=== PATIENT | male | born 1970 | race Hispanic/Latino ===

== ENCOUNTER 2023-11-13 06:48 | Inpatient (IN) | payer BC ==
--- OUTSIDE RECORDS SUMMARY | 2023-11-13 06:51 | XMS REPORT | Continuity of Care Document ---
Author Name Unknown Address [address] [facility]. [address] [facility] Address [address] [facility]. 1 495 [place] [address] Care Team Providers Care Talent Recruiter Name Role Phone Mahin Elmore Attending Clinician Andrei Davila Attending Clinician Sabina sánchez Physician, No Primary or Family Admitting Clinic niesha Unavailable Payers Payer Name Policy Type Policy Number Effective Date Expirati on Date Source Allergies, Adverse Reactions, Alerts Allergy Name Allergy Type Status Severity Reaction(s) Onset Date Inactive Date Treating Clinician Comments Source No Known Allergie s DA Active U 2022-03 0 00:00: 00 [facility] Encounters Start Date/Time End Date/Time Encounter Type Admission Type Attending Clinicians Care Facility Care Department Encounter ID Source 2023-06-22 15:38:45 2023-06-22 15:38:45 Outpatient SFA SFA [id number] Kory Hatch 2023-02-27 12:36:00 2023-02-27 12:36:00 Outpatient Mahin Elmore HCACL HCACL [id number] 34 [facility] 2023-02-21 05:17:00 2023-02-21 05:17:00 [facility] [id number] 51 [facility] 2023-02-20 10:05:00 2023-02-20 10:05:00 Outpatient Mahin Horvath [facility] [id number] 70 [facility] 2023-01-17 00:57:00 2023-01-17 06:11:00 Emergency EM [facility] [id number] 26 [facility] 2022-09-27 16:44:11 2022-09-27 16:44:11 Outpatient [place] [id number] Kory Hatch 2022-09-01 16:42:54 2022-09-01 16:42:54 Outpatient [facility] [id number] Kory Hatch 2022-08-24 10:49:32 2022-08-24 10:49:32 Outpatient [facility] [id number] Kory Hatch 2022-01-12 16:41:26 2022-01-12 16:41:26 Outpatient [facility] Kory Hatch 2022-01-03 10:00:49 2022-01-03 10:00:49 Outpatient [facility] Kory Hatch 2021-12-21 11:13:55 2021-12-21 11:13:55 Outpatient [place] [id number] Kory Finn Holden Results Test Description Test Time Test Comments Results Result Co mments Source CYTOLOGY NON [id number] 11:31:00* Test Item Value Reference Range Interpretation Comments 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) RUN DATE: 02/22/23 [place] - LAB PAGE 1 RUN TIME: 1131 Specimen Inquiry RUN USER: INTERFACE PATIENT: SARAH SARAVIA LOC: [place] U #: [id number] AGE/SX: 52/M ROOM: RE02/21/23REG DR: Mahin Elmore MD : 66 BED: DIS: STATUS: [facility] TLOC: SPEC #: [id number] RECD: 02/22/23 STATUS: CHARLINE HARRY #: [id number] WOODY: 02/21/23- SUBM DR: Mahin Elmore MD ENTERED: 02/22/23 SP TYPE: CYTO NGYN OTHR DR: No Primary or Family PhysicianORDERED: 74114/4, FNA INTERP RPT/4, ANATOMIC SPEC COPIES TO: No Primary or Family Physician Mahin Elmore MD [address] [place] [id number] PROCEDURES: 48153 (02/22/23) FNA INTERP RPT (02/22/23) TISSUES: A. LYMPH NODE, FNA CYTOLOGY (SMEAR,CELL BLOCK) - LEFT UPPER LOBE FNA- REC'D IN FORMALIN B. LYMPH NODE, FNA CYTOLOGY (SMEAR,CELL BLOCK) - RIGHT UPPER LOBE FNA- REC'D IN FORMALIN C. LYMPH NODE, FNA CYTOLOGY (SMEAR,CELL BLOCK) - STATION 10R FNA- REC'D IN FORMALIN D. LYMPH NODE, FNA CYTOLOGY (SMEAR,CELL BLOCK) - ST 7 FNA- REC'D IN FORMALIN CLINICAL HISTORY LUNG MASS FINAL DIAGNOSIS #1. Lung, left upper lobe, fine-needle aspiration and cell block: -No malignant cells identified. -Blood, inflammatory cells, and benign epithelial cells. #2. Lung, right upper lobe, fine-needle aspiration and cell block: -No malignant cells identified. -Blood, inflammatory cells, and benign epithelial cells. #3. Station 10R, fine-needle aspiration and cell block: -No malignant cells identified. -Blood and inflammatory cells. #4. Station 7, fine-needle aspiration and cell block: -No malignant cells identified. -Blood, cartilage, inflammatory cells, and benign epithelial cells. Comment: Correlation with concurrent flow cytometry studies is recommended. CONTINUED ON NEXT PAGE RUN DATE: 02/22/23 [place] [facility] PAGE 2 RUN TIME: 1131 Specimen Inquiry RUN USER: INTERFACE SPEC #: [id number] PATIENT: SARAH SARAVIA #[id number] (Continued) - GROSS DESCRIPTION Specimen #1 is received as FNA left upper lobe. 2 cytospin slides and 1 cell block areprepared. Specimen #2 is received as FNA right upper lobe. 2 cytospin slides and 1 cell block areprepared. Specimen #3 is received as FNA station 10R. 2 cytospin slides and 1 cell block areprepared. Specimen #4 is received as FNA station 7. 2 cytospin slides and 1 cell block are prepared. Fresh tissue from location 4R was sent for flow cytometry studies. Technical component performed at [facility],[address] [place] [address], [place] [address] Unless gross only, the diagnosis is based upon microscopic examination.Immunohistochemistry: This test was developed and its performance characteristicsdetermined by this laboratory. It has not been approved nor does it need approvalby the [place] FDA. Appropriate positive and negative controls are reviewed and judgedto be acceptable for performedimmunohistochemistry and/or special stains. This laboratoryis certified under the Clinical Laboratory Improvement Amendments (CLIA-88) as qualified toperform high complexity clinical laboratory testing. MICROSCOPIC DESCRIPTION A microscopic examination was performed. CLINICAL INFORMATION PULMONARY NODULE Signed SIGNATURE ON FILE Vadim Ellis 02/22/23 1131 END OF REPORT - XR FLUOROSCOPY 0-60 [id number] 08:57:00 [facility] 1970 Sex: M FAX: Mahin Velez MD [phone] [place]: St: REG Name: SARAH SARAVIA [facility] : 1970 Age/S: 52/M [address] [place] [address] Unit #: [id number] Loc: [place] [address] Phys: Mahin Elmore MD Acct: [id number] Dis Date: Status: REG [facility] PHONE #: [phone] Exam Date: 02/21/2023 0835 FAX #: [phone] Reason: BRONCH EXAMS: CPT CODE: [id number] XR FLUOROSCOPY 0-60 MIN 69203 Location: [facility] Study: Intraoperative fluoroscopic images. FINDINGS/ IMPRESSION: Intraoperative fluoroscopic images of bronchoscopy was performed. Please note that I was not present for this procedure. Please refer tothe operative notes for further details. Fluoroscopy time: None available. Total cumulative dose: No t available. 2 fluoroscopic spot images were obtained. Electronically Signed by Daja Lewis 02/21/2023 at 0857 Reported and signed by: Skip Chapman M.D. CC: Mahin Elmore MD Technologist: RT Vesta(R) Trnscrd Date/Time/By: 02/21/2023 (0857) : By: [email or web address] Orig Print D/T: S: 02/21/2023 (0901) PAGE 1 Signed Report- CT CHEST W/O [id number] 16:09:00 [facility] 1970 Sex: M Name: SARAH SARAVIA [facility] : 1970 Age/S: 52 / M [address] [place] [address] Unit #: [id number] Loc: [place] [address] Phys: Mahin Elmore MD Acct: [id number] Dis Date: Status: REG SDCPHONE #: [phone] Exam Date: 02/20/2023 1025 FAX #: [phone] Reason: R91.1, SOLITARY PULMONARY NODULE. EXAMS: CPT CODE: [id number] CT CHEST W/O CONTRAST 86919 EXAM: - CT CHEST W/O CONTRAST LOCATION: U19 TECHNIQUE: Serial axial CT images were obtained from the supraclavicular region to the adrenal glands without the administration of intravenous contrast. Phase(s): Non-contrast Reformats: Standard coronal and sagittal reformats. This exam was performed according to our departmental dose-o ptimization program, which includes automated exposure control, adjustment of the mA and/or kV according to patient size and/or use of iterative reconstruction technique. Unless otherwise specified, incidental findings do not require dedicated imaging follow-up. COMPARISON: CT chest 01/17/2023 HISTORY: R91.1, SOLITARY PULMONARY NODULE. FINDINGS: THYROID: Normal. LYMPHADENOPATHY: There is no supraclavicular or axillary lymphadenopathy. Enlarged mediastinal and hilar lymph nodes are present bilaterally, measuring up to 1.8 cm right lower paratracheal AIRWAYS: Scattered areas of mucus plugging noted within the segmental and subsegmental airways bilaterally, most pronounced in the right middlelobe. LUNGS/PLEURA: Multiple scattered pulmonary nodules are again noted with the largest measuring up to 1.8 cm at the right lung apex. Nodules demonstrate both peribronchovascular and fissure-based distribution. These appear grossly unchanged from recent prior. A few nodules appear to demonstrate central calcifications. No pleural effusion, pleural based masses, or calcifications. MEDIASTINUM:The heart and pericardium are unremarkable. The thoracic aorta is nonaneurysmal. No aortic atherosclerosis. No coronary artery calcifications noted. The pulmonary trunk is normal in size. The esophagus is grossly unremarkable. PAGE 1 Signed Report (CONTINUED) Name: SARAH SARAVIA [facility] : 1970 Age/S: 52 / M [address] [place] [address] Unit #: [id number] Loc: [place] [address] Phys: Mahin Elmore MD Acct: [id number] Dis Date: Status: REG [facility] PHONE #: [phone] Exam Date: 02/20/2023 1025 FAX #: [phone] Reason: R91.1, SOLITARY PULMONARY NODULE. EXAMS: CPT CODE: [id number] CT CHEST W/O CONTRAST 78233 (Continued) VISUALIZED ABDOMEN: The visualized upper abdomen is unremarkable. SOFT TISSUES: Unremarkable. BONES: No acute osseous findings. IMPRESSION: Unchanged enlarged mediastinal and hilar lymph nodes in addition to multiple bilateral pulmonary nodules measuring up to 1.8 cm in the right lung apex. A few of the nodules appear to demonstrate small central calcifications. Metastatic disease is again included in the differential, but bulky bilateral mediastinal and hilar lymphadenopathy in addition to pulmonary nodules with central calcifications can be seen with early/acute granulomatous response to fungal infection or resolving underlying sarcoidosis. Recommend correlation with lab values and possible follow-up bronchoscopy and/or suzanne biopsy if clinically warranted. at 1609 Reported and signed by: Caleb Harrington D.O. CC: Mahin Elmore MD Technologist:Sumaya Devine, RT(R)(CT) CTDI: DLP: Trnscb Date/Time: 02/20/2023 (1609) [email or web address] Orig Print D/T: S: 02/20/2023 (9817) PAGE 2 Signed ReportBASIC METABOLIC [id number] 10:07:00* Test Item Value Reference Range Interpretation Comme nts SODIUM (test code = NA) 141 mEq/L 134-147 N POTASSIUM (test code = K) 4.4 mEq/L 3.4-5.0 N CHLORIDE (test code = CL) 109 mEq/L 100-108 H CARBON DIOXIDE (test code = CO2) 28 mEq/l 21-33 N ANION GAP (test code = GAP) 9 0-20 N GLUCOSE (test code = GLU) 90 mg/dL 77-141 N NOTE: NEW NORMAL RANGE BLOOD UREA NITROGEN (test code = BUN) 12 mg/dL 7-25 N NOTE: NEW NORM AL RANGE GLOMERULAR FILTRATION RATE (test code = GFR) 79.8 90-95 L The Glomerular Filtration Rate is a calculated parameterbased on serum Creatinine, patient age and sex. GFR valuesless than 60 mL/min/1.73 square meters are indicative ofChronic Kidney Disease. Values less than 15 mL/min/1.73square meters indicate Kidney failure. The calculation forGFR is based on the CKD-EPI (2020) calculation. This formulais race indifferent and is the recommended formula for GFRby the National Kidney Foundation for Adults.The GFR will not calculate if the sex is unknown or if thepatient's age is <18 years. CREATININE (test code = CREAT) 1.1 mg/dL 0.6-1.3 N CALCIUM (test code = CA) 8.7 mg/dL 8.0-10.5 N CBC W/AUTO [id number] 09:49:00* Test Item Value Reference Range Interpretation Comme nts WHITE BLOOD CELL (test code = WBC) 6.2 x10 3/uL 4.5-11.0 N RED BLOOD CELL (test code = RBC) 5.74 x10 6/uL 4.00-5.60 H HEMOGLOBIN (test code = HGB) 16.2 g/dL 12.5-16.9 N HEMATOCRIT (test code = HCT) 46.3 % 37.5-50.7 N MEAN CELL VOLUME (test code = MCV) 80.7 fL 81.0-99.0 L MEAN CELL HGB (test code = MCH) 28.2 pg 27.0-33.0 N MEAN CELL HGB CONCETRATION (test code = MCHC) 35.0 g/dL 33.0-37.0 N RED CELL DISTRIBUTION WIDTH CV (test code = RDW) 13.4 % 11.5-14.5 N RED CELL DISTRIBUTION WIDTH SD (test code = RDW-SD) 38.7 fL 37.0-54.0 N PLATELET COUNT (test code = PLT) 221 x10 3/uL 150-400 N MEAN PLATELET VOLUME (test c ode = MPV) 10.8 fL 7.0-9.0 H NEUTROPHIL % (test code = NT%) 59.1 % 56.0-77.0 N IMMATURE GRANULOCYTE % (test code = IG%) 0.6 % 0.0-2.0 N LYMPHOCYTE % (test code = LY%) 13.6 % 14.0-32.0 L MONOCYTE % (test code = MO%) 10.4 % 4.8-9.0 H EOSINOPHIL % (test code = EO%) 15.2 % 0.3-3.7 H BASOPHIL % (test code = BA%) 1.1 % 0.0-2.0 N NUCLEATED RBC % (test code = NRBC%) 0.0 % 0-0 N NEUTROPHIL # (test code = NT#) 3.68 x10 3/uL 2.0-7.6 N IMMATURE GRANULOCYTE # (test code = IG#) 0.04 x10 3/uL 0.00-0.03 H LYMPHOCYTE # (test code = LY#) 0.85 x10 3/uL 1.0-3.8 L MONOCYTE # (test code = MO#) 0.65 x10 3/uL 0.1-0.8 N EOSINOPHIL # (test code = EO#) 0.95 x10 3/uL 0.0-0.2 H BASOPHIL # (test code = BA#) 0.07 x10 3/uL 0.0-0.2 N NUCLEATED RBC # (test code = NRBC#) 0.00 x10 3/uL 0.0-0.1 N - CT CHEST W/[id number] 05:17:00 [facility] 1970 Sex: M Name: SARAH SARAVIA [facility] [place] : 1970 Age/S: 52 / M [address] [place] [address] Blvd Unit #: [id number] Loc: [place] [address] Phys: Daljit Ford VERIFICATION CLERK Acct: [id number] Dis Date: Status: REG ER PHONE #: [phone] Exam Date: 01/17/2023443 FAX #: [phone] Reason: DIFFICULTY SWALLOWING EXAMS: CPT CODE: [id number] CT CHEST W/CONTRAST 12248 EXAMINATION: - CT CHEST W/CONTRAST LOCATION: H101 CLINICAL HISTORY/INDICATION: DIFFICULTY SWALLOWING COMPARISON: None. TECHNIQUE: Axial imageswere obtained from the thoracic inlet to the adrenal glands with intravenous contrast in soft tissue and lung windows. Coronal and sagittal reformatted images were obtained from the axial data set. This examination was performed according to our departmental dose optimization program, which includes automated exposure control, adjustment of the mA and/or kV according to patient size, and/or use of iterative reconstruction technique. FINDINGS: STATEMENT: Unless otherwise specified, incidental findings do not require dedicated imaging follow-up. LINES/TUBES/DEVICE: None. LUNGS AND AIRWAYS: There are multiple solid nodules in the bilateral lungs involving all lobes. The largest nodule is located in the right upper lobe at the lung apex and measures 2 cm (image 9, series 3). The largest nodule in the left lung is subpleural in location, located in the left upper lobe and measures 1.4 cm (madhav ge 31, series 3). PLEURA: No pneumothorax or pleural effusion. THYROID GLAND: Normal. HEART AND MEDIASTINUM: Heart is normal in size without pericardial effusion. Conventional branching pattern of the aorta without aneurysm or dissection. Origins of great vessels are patent.. There is a moderate-sized hiatal hernia. There is wall thickening of the distal within the hiatal hernia which raises possibility of neoplasm.. ADENOPATHY: There are enlarged lymph nodes in the prevascular space, subcarinal space, AP window and bilateral hilum. The largest and most discrete mediastinal lymph node is located in the subcarinal region and measures 1.6 x 2.1 cm the largest right hilar lymph node measures 1.8 x 1.5 cm enlarged left hilar lymph node measures 1.8 x 1.6 cm. PAGE 1 Signed Report (CONTINUED) Name: SARAH SARAVIA [facility] : 1970 Age/S: 52 / M [address] [place] [address] Unit #: [id number] Loc: [place] [address] Phys: Daljit Ford NP Acct: [id number] Dis Date: Status: REG ER PHONE #: [phone] Exam Date: 01/17/2023443 FAX #: [phone] Reason: DIFFICULTY SWALLOWING EXAMS: CPT CODE: [id number] CT CHEST W/CONTRAST 74773 (Continued) EXTERNAL SOFT TISSUE: No abnormalities. UPPER ABDOMEN: The liver, gallbladder, pancreas, spleen and adrenal glands are unremarkable. BONES: Regional osseous structures are intact. There is moderate thoracic spine dextroscoliosis. There is no lytic or sclerotic bony lesions. IMPRESSION: 1. Multiple solid nodules in bilateral lungs. Findings may reflect metastatic disease or infectious process. The largest nodule is located in the right lung apex and measures up to 2 cm. Consider further evaluation with biopsy. If biopsy is notdesired, CT follow-up in 3 months or PET scan is recommended to further assess. 2. Moderate size hiatal hernia. Wall thickening within the hiatal hernia raises possibility of neoplasm. Further evaluation with endoscopy is recommended. 3. Mediastinal and hilar adenopathy may reflect suzanne metastases. at 0517 Reported and signed by: Billy García M.D. CC: Daljit Ford VERIFICATION CLERK; Andrei Ayers MD Technologist:Ruben Hilario, RT(R)(CT) CTDI: DLP: Trnscb Date/Time: 01/17/2023 (0517) [email or web address] Orig Print D/T: S: 01/17/2023 (0521) PAGE 2Signed Report- CT NECK W/[id number] 03:13:00 [facility] 1970 Sex: M Name: SARAH SARAVIA [facility] : 1970 Age/S: 52 / M [address] [place] [address] Unit #: [id number] Loc: [place] [address] Phys: Daljit Ford VERIFICATION CLERK Acct: [id number] Dis Date: Status: [facility] PHONE #: [phone] Exam Date: 01/17/2023212 FAX #: [phone] Reason: foreign body sensation EXAMS: CPT CODE: [id number] CT NECK W/CONTRAST 97156 LOCATION: 8 HISTORY: Male, 52 years of agewith foreign body sensation in the throat EXAM: CT SCAN OF SOFT TISSUES OF THE NECK WITH IV CONTRAST. COMPARISON: None at this time TECHNIQUE: Helical axial images were obtained with nonionic IV contrast using the soft tissue neck protocol. Coronal and sagittal reformats were performed. One or more of the following dose reduction techniques were used: Automated exposure control; adjustment of the mA and/or kV according to the patient size; and/or use of iterative reconstruction technique. STATEMENTS: Exam quality is acceptable. FINDINGS: Specifically, no radiopaque foreign body is seen in the upper aerodigestive tract. The incompletely imaged mid esophagus is nondistended but contains fluid up to the level of the upper mediastinum. Numerous enlarged confluent and slightly necrotic lymph nodes are seen in the mediastinum and both radha. Multiple soft tissue densities seen nodules are seen in the right and left upper lobes, largest measuring up to 2.2 cm diameter in the right apex, and h ighly suggestive of metastatic neoplasm. No pharyngeal or laryngeal mucosal thickening or mucosal mass lesion. No significant hypertrophy of tonsils or adenoids. No peritonsillar abscess collection.No retropharyngeal edema or abscess. Tongue base is unremarkable. The epiglottis is within normal limits. Vocal cords are symmetric. No significant airway compromise. Carotid and jugular vessels are unremarkable. Salivary glands are unremarkable. Thyroid gland is unremarkable. Mucosal thickening seen in both maxillary sinuses. The visualized mastoid air cells and middle ear cavities are clear. Noosteolytic or osteoblastic skeletal lesions. Numerous severe dental caries incidentally noted. IMPRESSION: 1. Numerous soft tissue masses in both upper lung zones as well as numerous confluent and necrotic lymph nodes in the mediastinum and both radha suggesting metastatic neoplasm. Recommend formalCT chest to further evaluate. 2. Fluid is present in the esophagus raising the question of reflux or possibly distal esophageal obstruction. PAGE 1 Signed Report (CONTINUED) Name: SARAH SARAVIA [facility] : 1970 Age/S: 52 / M [address] [place] [address] Blvd Unit #: [id number] Loc: [place] [address] Phys: Daljit Ford NP Acct: [id number] Dis Date: Status: [facility] ER PHONE #: [phone] Exam Date: 01/17/2023212 FAX #: [phone] Reason: foreign body sensation EXAMS: CPT CODE: [id number] CT NECK W/CONTRAST 40724 (Continued) 3. No radiopaque foreign body in the upper aerodigestive tract. at 0313 Reported and signed by: Iris Gary M.D. CC: Daljit Ford VERIFICATION CLERK; Andrei Ayers MD Technologist:RT Christofer(R)(CT) CTDI: DLP: Trnscb Date/Time: 01/17/2023 (312) [email or web address] Orig Print D/T: S: 01/17/2023 (315) PAGE 2 Signed ReportCOMPREHENSIVE METABOLIC PANEL 2023-01-17 02:11:00* Test Item Value Reference Range Interpretation Comme nts SODIUM (test code = NA) 144 mEq/L 134-147 N POTASSIUM (test code = K) 4.0 mEq/L 3.4-5.0 N CHLORIDE (test code = CL) 111 mEq/L 100-108 H CARBON DIOXIDE (test code = CO2) 24 mEq/l 21-33 N ANION GAP (test code = GAP) 13 0-20 N GLUCOSE (test code = GLU) 92 mg/dL 77-141 N NOTE: NEW NORMAL RANGE BLOOD UREA NITROGEN (test code = BUN) 19 mg/dL 7-25 N NOTE: NEW NORM AL RANGE GLOMERULAR FILTRATION RATE (test code = GFR) 71.9 90-95 L The Glomerular Filtration Rate is a calculated parameterbased on serum Creatinine, patient age and sex. GFR valuesless than 60 mL/min/1.73 square meters are indicative ofChronic Kidney Disease. Values less than 15 mL/min/1.73square meters indicate Kidney failure. The calculation forGFR is based on the CKD-EPI (2020) calculation. This formulais race indifferent and is the recommended formula for GFRby the National Kidney Foundation for Adults.The GFR will not calculate if the sex is unknown or if thepatient's age is <18 years. CREATININE (test code = CREAT) 1.2 mg/dL 0.6-1.3 N TOTAL PROTEIN (test code = PROT) 7.8 g/dL 6.4-8.2 N ALBUMIN (test code = ALB) 4.50 g/dL 3.4-5.0 N CALCIUM (test code = CA) 9.1 mg/dL 8.0-10.5 N BILIRUBIN TOTAL (test code = BILT) 1.80 mg/dL 0.0-1.0 H SGOT/AST (test code = AST) 23 IUnit/L 8-34 N NOTE: NEW NORMAL RANGE SGPT/ALT (test code = ALT) 15 IUnit/L 10-49 N NOTE: NEW NORMAL RANGE ALKALINE PHOSPHATASE TOTAL (test code = ALKP) 96 IUnit/L 20-125 N CBC W/AUTO [id number] 02:06:00* Test Item Value Reference Range Interpretation Comme nts WHITE BLOOD CELL (test code = WBC) 7.7 x10 3/uL 4.5-11.0 N RED BLOOD CELL (test code = RBC) 5.85 x10 6/uL 4.00-5.60 H HEMOGLOBIN (test code = HGB) 16.7 g/dL 12.5-16.9 N HEMATOCRIT (test code = HCT) 46.6 % 37.5-50.7 N MEAN CELL VOLUME (test code = MCV) 79.7 fL 81.0-99.0 L MEAN CELL HGB (test code = MCH) 28.5 pg 27.0-33.0 N MEAN CELL HGB CONCETRATION (test code = MCHC) 35.8 g/dL 33.0-37.0 N RED CELL DISTRIBUTION WIDTH CV (test code = RDW) 13.8 % 11.5-14.5 N RED CELL DISTRIBUTION WIDTH SD (test code = RDW-SD) 39.4 fL 37.0-54.0 N PLATELET COUNT (test code = PLT) 275 x10 3/uL 150-400 N MEAN PLATELET VOLUME (test c ode = MPV) 11.1 fL 7.0-9.0 H NEUTROPHIL % (test code = NT%) 74.4 % 56.0-77.0 N IMMATURE GRANULOCYTE % (test code = IG%) 0.5 % 0.0-2.0 N LYMPHOCYTE % (test code = LY%) 10.7 % 14.0-32.0 L MONOCYTE % (test code = MO%) 9.1 % 4.8-9.0 H EOSINOPHIL % (test code = EO%) 4.3 % 0.3-3.7 H BASOPHIL % (test code = BA%) 1.0 % 0.0-2.0 N NUCLEATED RBC % (test code = NRBC%) 0.0 % 0-0 N NEUTROPHIL # (test code = NT#) 5.75 x10 3/uL 2.0-7.6 N IMMATURE GRANULOCYTE # (test code = IG#) 0.04 x10 3/uL 0.00-0.03 H LYMPHOCYTE # (test code = LY#) 0.83 x10 3/uL 1.0-3.8 L MONOCYTE # (test code = MO#) 0.70 x10 3/uL 0.1-0.8 N EOSINOPHIL # (test code = EO#) 0.33 x10 3/uL 0.0-0.2 H BASOPHIL # (test code = BA#) 0.08 x10 3/uL 0.0-0.2 N NUCLEATED RBC # (test code = NRBC#) 0.00 x10 3/uL 0.0-0.1 N Notes Date/Time Note Provider Source 2023-02-26 16:36:00 [id number] [address] PATIENT NAME: SARAH SARAVIA ADMIT DATE: 02/21/23 ACCOUNT NO: [id number] ROOM NO: AGE: 52 REPORT TYPE: HISTORY AND PHYSICAL SEX: M ADMITTING PHYSICIAN: ATTENDING PHYSICIAN:Mahin Elmore MD ADMISSION DATE: 02/21/2023 05:17:00 CHIEF COMPLAINT: Lung mass. HISTORY OF PRESENT ILLNESS: This is a 52-year-old male who had come to the emergency room because of a piece of chicken got stuck in his esophagus. In the emergency room, his chicken did pass, but on the CT scan of the chest they found multiple nodules with the largest in the right upper lobe apex and there was extensive right hilar and mediastinal adenopathy. He has already seen Dr. Elizalde and he was about to get a PET scan, but we do not have the records. MEDICATIONS: Theophylline 100 mg daily. ALLERGIES: NONE. PAST MEDICAL HISTORY: Asthma and he only uses ProAir therapy. PAST SURGICAL HISTORY: None. FAMILY HISTORY: He is adopted. SOCIAL HISTORY: He is a former smoker for only 3 years and he quit in 1999. 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 REVIEW OF SYSTEMS: In addition to the above, the patient has denied cough or chest pain. He has no fever and no weight loss. PHYSICAL EXAMINATION: VITAL SIGNS: Stable. Pulse oximetry 98% on room air. His BMI is 27. GENERAL APPEARANCE: He is well-built and he is alert and oriented. SKIN: Has no rash. HEENT: Shows normal mouth and throat. NECK: Has no masses, no lymph nodes. LUNGS: Clear. HEART: Regular. ABDOMEN: Soft, nontender. EXTREMITIES: Have no edema, no clubbing, no cyanosis. NEUROLOGIC: Shows no motor deficits and cranial nerves are intact. LABORATORY DATA AND X-RAYS: CT scan was described above. PATIENT NAME: SARAH SARAVIA His labs are normal. IMPRESSION: 1. Multiple nodules in all lobes with the largest one in the right upper lobe apex. 2. Enlarged mediastinal and right hilar nodes. PLAN: 1. Robotic bronchoscopy with linear EBUS with fluoroscopy. 2. PET scan is already planned, add this later. Dictated By: Mahin Elmore MD Date Dictated: 02/26/2023 16:36:49 Date Transcribed: 02/26/2023 21:52:54 [facility] Receipt ID: [id number] Authenticated by Mahin Elmore MD On 02/28/2023 10:06:29 PM at 1006 PATIENT NAME: SARAH SARAVIA [facility] 2023-02-21 18:10:00 [id number] [place] [address] PATIENT NAME: SARAH SARAVIA ADMIT DATE: 02/21/23 ACCOUNT NO: [id number] ROOM NO: AGE: 52 REPORT TYPE: OPERATIVE REPORT SEX: M ADMITTING PHYSICIAN: ATTENDING PHYSICIAN:Mahin Elmore MD OPERATION DATE: 02/21/2023 PREOPERATIVE DIAGNOSIS: POSTOPERATIVE DIAGNOSIS: PROCEDURE: 1. Robotic bronchoscopy with transbronchial needle biopsy. 2. Linear endobronchial ultrasound. 3. Radial endobronchial ultrasound. SURGEON: DEGREASING SOLUTION MIXER: INDICATION FOR THE PROCEDURES: Lung nodules and extensive mediastinal adenopathy. ANESTHESIA: General endotracheal tube. INDICATION FOR THE USE OF LINEAR ULTRASOUND BRONCHOSCOPY: The lymph nodes in question were not visible via any other means and the ultrasound was needed to guide the biopsy needle. This was done also as a possible staging for cancer. INDICATION FOR THE USE OF RADIAL ULTRASOUND: The lung nodule in question was not visible using fluoroscopy or endobronchial direct visualization. The radial ultrasound was needed to localize the nodule and direct the biopsy instruments. PROCEDURE IN DETAIL: I started with the regular bronchoscope and went through the endotracheal tube. There were no endobronchial lesions seen. I examined the airway down to the segmental bronchi on both sides and I suctioned small amount of excessive secretions. I then switched to the robotic bronchoscopy catheter that I inserted through the endotracheal tube and I proceeded with the usual registration. I had already loaded the CT scan, CT images in the PlanPoint software and I did the computer planning for the virtual airway path to be followed. I navigated initially to the left upper lobe nodule. I used the radial ultrasound and was not able to get any nodule shadow. I did three passes with 19-gauge needle biopsy guided by the navigation software and fluoroscopy. I then changed to the second target which is in the right upper lobe apex. Again, I navigated to the target and checked with radial ultrasound probe and I was not able to get a signal. I did four passes with 19-gauge needle biopsy guided by PATIENT NAME: SARAH SARAVIA the virtual images and fluoroscopy. I switched afterwards to linear EBUS scope and I went through the endotracheal tube. There was extensive adenopathy at stations 4R, 10R and 11R and station 7. I did biopsies at station 4R and 10R and station 7 and I used all the return from station 4R for microbiology and flow cytometry. The lymph nodes in general were quite hard and only small tissue material was breaking up and getting in the needle. There was continuous mild oozing of blood from a biopsy site in the right side airway and I changed to the regular bronchoscope and suctioned all the blood and waited until the oozing stopped. I checked with fluoroscopy and there was no pneumothorax at the end of the procedure. ESTIMATED BLOOD LOSS: 20 mL. Dictated By: Mahin Elmore MD Date Dictated: 02/21/2023 18:10:22 Date Transcribed: 02/22/2023 00:03:20 [facility] Receipt ID: [id number] Authenticated by Mahin Elmore MD On 02/26/2023 04:11:39 PM at 0411 PATIENT NAME: SARAH SARAVIA [facility] 2023-02-20 09:00:00 [phone] [address] PATIENT NAME: RANISARAH ADMIT DATE: ACCOUNT NO: [id number] ROOM NO: AGE: 52 REPORT TYPE: eELECTROCARDIOGRAM REPORT SEX: M ADMITTING PHYSICIAN: ATTENDING PHYSICIAN:Mahin Elmore MD Order: [id number] Test Reason : PREOP Test Date/Time Stamp: MonFeb 20 2023 09:00:03 Blood Pressure : / mmHG Vent. Rate : 057 BPM Atrial Rate : 057 BPM P-R Int : 136 ms QRS Dur : 090 ms QT Int : 382 ms P-R-T Axes : 052 -01 021 degrees QTc Int : 371 ms Sinus bradycardia Otherwise normal ECG Confirmed by MD BENNETT OMAR ([id number]) on 02/20/2023 11:50:51 AM Referred By: Mahin Elmore Confirmed by:HERBERT BENNETT MD at 1150 PATIENT NAME: SARAH SARAVIA [facility] 2023-01-17 01:34:00 [facility] ([facility] EMERGENCY PROVIDER REPORT REPORT#:[id number] REPORT STATUS: Signed DATE:01/17/23 TIME: 133 PATIENT: SARAH SARAVIA UNIT #: [id number] ROOM/BED: AGE: 52 SEX: M PCP PHYS: No Primary or Family Physician SERVICE AUTHOR: Daljit Ford VERIFICATION CLERK * ALL edits or amendments must be made on the electronic/computer document * Daljit Ford 01/17/23 0134: HPI-Sore Throat Free Text HPI Notes Free Text HPI Notes 52-year-old male in for evaluation of possible foreign body in throat. Patient reports he was seen at another hospital and given glucagon to help with symptoms , but no relief. Patient states this is happened to him in the past and had to have endoscopic to remove food bolus. Patient reports symptoms started around 4 PM today after eating chicken. Patient complaining of inability to swallow. General Confirmed Patient Yes Patient Type New patient Initial Greet Date/Time 01/17/23 0100 Presentation Chief Complaint Sore throat, Ingestion, foreign body, Unable to take fluids Hx Obtained From Patient Onset Occurred Today Symptom Duration Since onset Progression since Onset Unchanged Context of Onset No sick contacts Location Neck, R side Quality Aching Pain/Sev: Onset Mild Pain/Sev: Current Mild Associated Other Pt denies other symptoms Exacerbated by Nothing Relieved by Nothing Review of Systems ROS Statements All systems rev neg except as marked. Focused Review of Systems Ears/Nose/Throat Reports: Sore throat, Throat pain. Past Medical History - Adult Stated Complaint "SOMETHING LODGED IN MY THROAT" Allergies Coded Allergies: No Known Allergies (01/17/23) Review of Nursing Notes Rev avail, and agree Past Medical History: Reports: Asthma. Smoking status for patients 13 years old or older: Never Smoker Physical Exam Vital Signs Vital Signs First Documented: Result Date Time Pulse Ox 96 01/17 100 B/P 116/82 01/17 100 B/P Mean 93 01/17 100 O2 Delivery Room air 01/17 100 Temp 36.8 01/17 100 Pulse 77 01/17 100 Resp 16 01/17 100 Last Documented: Result Date Time Pulse Ox 97 01/17 557 B/P 115/77 01/17 557 B/P Mean 89 01/17 557 O2 Delivery Room air 01/17 557 Temp 36.6 01/17 557 Pulse 72 01/17 557 Resp 14 01/17 557 Review of Vital Signs Reviewed Basic Physical Exam Basic PE HEAD: Atraumatic/NC, EYES: PERRL, conj clear, RESP: No resp distress, CV: Reg rate rhythm, ABD: Soft/non-tender, EXT: No gross abnormality, SKIN: No rashes, warm/dry, NEURO: alert oriented, NEURO: gross movement NL, PSYCH: NL thought content Focused PE General/Const General/Const Awake, Alert, No acute distress, Cooperative Ears/Nose/Throat Ears/Nose/Throat Atraumatic, Airway patent, Pharynx NL, No trismus, Tympanic membs NL MS Neck Neck Atraumatic, Supple, No meningismus, Full range of motion, No adenopathy, No swelling, Non-tender Resp/Chest Respiratory/Chest Atraumatic, Breath sounds NL, Breath sounds = bilat, No respiratory distress, No wheezing, No retractions Cardiovascular Cardiovascular Heart rate NL, Regular rhythm, Heart sounds NL, Cap refill not delayed Skin Skin Atraumatic, Color NL, No rash, Warm, Dry, Intact Neurologic Neurologic Oriented X3, Speech NL Interpretation Diagnostics Lab Results Interpretation Results Laboratory Tests 01/17/23 0149: [Embedded Image Not Available] Laboratory Tests: 01/179 Chemistry Sodium (134 - 147 mEq/L) 144 Potassium (3.4 - 5.0 mEq/L) 4.0 Chloride (100 - 108 mEq/L) 111 H Carbon Dioxide (21 - 33 mEq/l) 24 Anion Gap (0 - 20) 13 BUN (7 - 25 mg/dL) 19 Creatinine (0.6 - 1.3 mg/dL) 1.2 Glomerular Filtr Rate (90 - 95) 71.9 L Glucose (77 - 141 mg/dL) 92 Calcium (8.0 - 10.5 mg/dL) 9.1 Total Bilirubin (0.0 - 1.0 mg/dL) 1.80 H AST (8 - 34 IUnit/L) 23 ALT (10 - 49 IUnit/L) 15 Total Alk Phosphatase (20 - 125 IUnit/L) 96 Total Protein (6.4 - 8.2 g/dL) 7.8 Albumin (3.4 - 5.0 g/dL) 4.50 Hematology WBC (4.5 - 11.0 x10 3/uL) 7.7 RBC (4.00 - 5.60 x10 6/uL) 5.85 H Hgb (12.5 - 16.9 g/dL) 16.7 Hct (37.5 - 50.7 %) 46.6 MCV (81.0 - 99.0 fL) 79.7 L MCH (27.0 - 33.0 pg) 28.5 MCHC (33.0 - 37.0 g/dL) 35.8 RDW (11.5 - 14.5 %) 13.8 Plt Count (150 - 400 x10 3/uL) 275 MPV (7.0 - 9.0 fL) 11.1 H Neut % (Auto) (56.0 - 77.0 %) 74.4 Lymph % (Auto) (14.0 - 32.0 %) 10.7 L Hickman % (Auto) (4.8 - 9.0 %) 9.1 H Eos % (Auto) (0.3 - 3.7 %) 4.3 H Baso % (Auto) (0.0 - 2.0 %) 1.0 Neut # (Auto) (2.0 - 7.6 x10 3/uL) 5.75 Lymph # (Auto) (1.0 - 3.8 x10 3/uL) 0.83 L Hickman # (Auto) (0.1 - 0.8 x10 3/uL) 0.70 Eos # (Auto) (0.0 - 0.2 x10 3/uL) 0.33 H Baso # (Auto) (0.0 - 0.2 x10 3/uL) 0.08 Abs Immat Gran (auto) (0.00 - 0.03 x10 3/uL) 0.04 H Immature Gran % (0.0 - 2.0 %) 0.5 Nucleated RBC % (0 - 0 %) 0.0 Nucleated RBCs # (Man) (0.0 - 0.1 x10 3/uL) 0.00 Recent Impressions: CAT SCAN - CT NECK W/CONTRAST 01/17 213 Report Impression - Status: SIGNED Entered: 01/17/2023 0316 IMPRESSION: 1. Numerous soft tissue masses in both upper lung zones as well as numerous confluent and necrotic lymph nodes in the mediastinum and both radha suggesting metastatic neoplasm. Recommend formal CT chest to further evaluate. 2. Fluid is present in the esophagus raising the question of reflux or possibly distal esophageal obstruction. 3. No radiopaque foreign body in the upper aerodigestive tract. Impression By: Rosario Gary M.D. CAT SCAN - CT CHEST W/CONTRAST 01/18 444 Report Impression - Status: SIGNED Entered: 01/17/2023 0521 IMPRESSION: 1. Multiple solid nodules in bilateral lungs. Findings may reflect metastatic disease or infectious process. The largest nodule is located in the right lung apex and measures up to 2 cm. Consider further evaluation with biopsy. If biopsy is not desired, CT follow-up in 3 months or PET scan is recommended to further assess. 2. Moderate size hiatal hernia. Wall thickening within the hiatal hernia raises possibility of neoplasm. Further evaluation with endoscopy is recommended. 3. Mediastinal and hilar adenopathy may reflect suzanne metastases. Impression By: Viraj García M.D. Lab Imaging Statement Laboratory radiographic studies reviewed and considered in the medical decision-making. Point of Care Testing Pulse Oximetry Pulse Ox % 96 On: Room air Interpretation Interpreted by me, Pulse oximetry normal Time 0100 Re-Evaluation MDM Free Text MDM Notes Free Text MDM Notes 52-year-old male in for possible foreign body in throat. CBC and CMP unimpressive. CT of soft tissue neck negative for any foreign body, but does reveal numerous soft tissue masses in both upper lung zones as well as numerous confluent and necrotic lymph nodes in the mediastinum and both radha suggesting metastatic neoplasm. CT of the chest reveals 2 cm lung nodule and adjacent wall thickening of hiatal hernia. CT findings discussed with patient. Plan is admit patient for further evaluation and consult with gastroenterology as well as heme otology oncology for biopsy. Patient refusing to stay and requesting to leave against medical. Patient case discussed with Dr. Ayers, ED attending. ED Course Medication(s) Ordered Medication(s) Ordered: Autonomic Drugs Sig/Farhat Start time Last Medication Dose Route Stop Time Status Admin Albuterol Sulfate 2.5 MG X1ED STA 01/17 0546 DC 01/17 NEB 01/17 0547 0605 Albuterol Sulfate 2.5 MG X1ED STA 01/17 0449 CAN NEB 01/17 0450 Diagnostic Agents Sig/Farhat Start time Last Medication Dose Route Stop Time Status Admin Iopamidol 75 ML .STK-MED ONE 01/17 446 DC 01/17 IV 01/17 447 0446 Differential Diagnosis Differential Diagnosis Aphthous ulcer, Parotitis, Pharyngitis, acute, Pharyngitis, viral, Strep throat, Tonsillitis, acute Patient Discharge Departure Vital Signs/Condition Vital Signs First Documented: Result Date Time Pulse Ox 96 01/17 100 B/P 116/82 01/17 100 B/P Mean 93 01/17 100 O2 Delivery Room air 01/17 100 Temp 36.8 01/17 100 Pulse 77 01/17 100 Resp 16 01/17 100 Last Documented: Result Date Time Pulse Ox 97 01/17 557 B/P 115/77 01/17 557 B/P Mean 89 01/17 557 O2 Delivery Room air 01/17 557 Temp 36.6 01/17 557 Pulse 72 01/17 557 Resp 14 01/17 557 All vital signs available at the time of this entry have been reviewed. Condition Stable Disposition Decision Other )( Time 05 )( Date 01/17/23 Against Medical Advice Yes Discharge/Care Plan Counseled Regarding Diagnosis, Lab results, Imaging studies, Prescriptions, Need for admission, Need for follow-up, Smoking cessation, Alcohol cessation Additional Instructions Patient follow-up suggested for pulmonology, oncology, and gastroenterology regarding symptoms and today's work-up. You have been discharged home with copies of the images as well as the radiology reports. Strict return precautions discussed for shortness of breath or inability to swallow. Andrei Ayers 01/18/23 0310: Patient Discharge Departure Clinical Impression Clinical Impression Primary Impression: Hiatal hernia Secondary Impressions: Left against medical advice, Lung mass Discharge/Care Plan Referrals Provider Referral: Fred Aldana MD Address: [address] [place] [address] Provider Referral: Cesar Richardson MD Address: [address] [place] [address] Provider Referral: Jono Yip MD Address: [address] [place] [address] [id number] [place] [id number] Provider Referral: Noam Valderrama MD Address: [address] [place] [address] Supervising Physician Note MidLv Saw Pt Alone I have reviewed the PA/VERIFICATION CLERK's note and plan of care. I was available for consultation as needed at all times during the patient's visit in the emergency department. Left AMA at 0224 at 0312 RPT #:[id number] END OF REPORT [facility]
[2023-11-13] MEDS ORDERED: ALBUTEROL 2.5 MG/3 ML NEB SOL ONE ×4 (06:53→10:01)
[2023-11-13] MEDS ORDERED: IPRATROPIUM BROM 0.5MG/2.5ML ONE ×2 (06:53→14:59)
[2023-11-13] MEDS ORDERED: METHYLPREDNISOLONE 125 MG INJ ONE ×2 (06:56→12:05)
[2023-11-13 07:12] LABS: Absolute Basophils 0.1 K/uL (0-0.5); Absolute Eosinophils 1.5 K/uL (0-0.5); Absolute Lymphocytes (CBC) 0.7 K/uL (0.7-4.9); Absolute Monocytes 0.5 K/uL (0.1-1.3); Absolute Neutrophil 4.6 K/uL (1.8-8.0); Basophils % 1.2 % (0-1.3); Eosinophils % 19.7 % (0-4.4); Hematocrit 47.1 % (39.6-49.0); Hemoglobin 15.9 g/dL (13.6-17.9); Lymphocytes % 9.5 % (15.3-44.8); MCH 28.3 pg (27.0-35.0); MCHC 33.8 g/dL (32.0-36.0); MCV 83.6 fL (80-100); MPV 9.2 fL (7.6-11.3); Monocytes % 7.3 % (3.3-12.3); Neutrophils % 62.3 % (41.7-73.7); Nucleated Red Blood Cells % 0.2 % (0-0); Platelets 234 thou/uL (152-406); RBC Red Blood Cell Count 5.64 M/uL (4.33-5.43)
[2023-11-13] MEDS ORDERED: Magnesium Sulfate 2gm IVPB 2 G/50 ML BAG IV ONE (07:28)
[2023-11-13 07:33] LABS: Albumin 4.3 g/dL (3.4-5.0); Albumin/Globulin Ratio 1.1 (1.1-1.8); Bilirubin Direct 0.2 mg/dL (0-0.2); Bilirubin Indirect, Calculated 0.8 mg/dL (0.2-0.8); Globulin 3.9 g/dL (2.3-3.5); Magnesium 2.2 mg/dL (1.6-2.4); Protein, Total 8.2 g/dL (6.4-8.2); Troponin High Sensitivity 5.8 pg/mL (<58.9)
[2023-11-13] MEDS ORDERED: CEFTRIAXONE 1000 MG/VIAL ONE (07:42)
[2023-11-13] MEDS ORDERED: AZITHROMYCIN 500 MG INJ IVPB ONE (07:42)
[2023-11-13] MEDS ORDERED: NA CHLORIDE 0.9% 250 ML ONE (07:43)
--- NOTE | 2023-11-13 08:24 | RAD REPORT ---
EXAM DESCRIPTION: Rosanne Single View11/13/2023 7:08 am CLINICAL HISTORY: DYSPNEA COMPARISON: No comparisons TECHNIQUE: Portable AP view of the chest. FINDINGS: Patchy airspace opacities in the upper to mid lung on the left, and in the mid to lower ri ght lung. Background chronic interstitial thickening and hyperlucency. No pneumothorax or effusion. The cardiomediastinal contours are unremarkable. IMPRESSION: Patchy bilateral airspace opacities as above, suggesting an infectious/inflammatory proc ess superimposed on chronic obstructive changes.
[2023-11-13] MEDS ORDERED: NA CHLORIDE 0.9% 1,000 ML ONE ×2 (08:25→12:05)
[2023-11-13 08:46] LABS: SARS-CoV-2 Antigen CONTROL BLUE LINE VIS/BG OK; SARS-CoV-2 Antigen Rapid Res Negative (Negative)
--- NOTE | 2023-11-13 09:24 | ER ---
Nurse's Notes [facility] Name: Gerry Templeton Age: 52 yrs Sex: Male : 1970 Arrival Date: 11/13/2023 Time: 06:48 Bed 4 Private MD: Diagnosis: Moderate persistent asthma with (acute) exacerbation Presentation: 11/12 07:00 Chief complaint: Patient states: SOB SINCE MONDAY, WORSE TODAY. HAVE ASTHMA. vc1 Coronavirus screen: Vaccine status: Patient reports being unvaccinated. Client denies travel out of the [place] in the last 14 days. At this time, the client does not indicate any symptoms associated with coronavirus-19. Ebola Screen: Patient negative for fever greater than or equal to 101.5 degrees Fahrenheit, and additional compatible Ebola Virus Disease symptoms Patient denies exposure to infectious person. Patient denies travel to an Ebola-affected area in the 21 days before illness onset. No symptoms or risks identified at this time. Initial Sepsis Screen: Does the patient meet any 2 criteria? No. Patient's initial sepsis screen is negative. Does the patient have a suspected source of infection? No. Patient's initial sepsis screen is negative. Risk Assessment: Do you want to hurt yourself or someone else? Patient reports no desire to harm self or others. Onset of symptoms was November 11, 2023. 07:00 Method Of Arrival: Ambulatory vc1 07:00 Acuity: ABHI 2 vc1 Triage Assessment: 07:02 General: Appears distressed, uncomfortable, slender, well groomed, well developed, well vc1 nourished, Behavior is cooperative, anxious. Pain: Denies pain. Neuro: Level of Consciousness is awake, alert, obeys commands, Oriented to person, place, time, situation, Appropriate for age. Cardiovascular: Rhythm is sinus tachycardia. Respiratory: Reports shortness of breath at rest Airway is patent Respiratory effort is even, labored, Respiratory pattern is symmetrical, tachypnea Breath sounds with wheezes bilaterally. Onset: The symptoms/episode began/occurred suddenly, the patient has moderate shortness of breath. Historical: - Allergies: 07:01 No Known Allergies; vc1 - Home Meds: 07:01 Albuterol Inhl [Active]; vc1 - PMHx: 07:01 Asthma; vc1 - PSHx: 07:01 None; vc1 - Immunization history:: Client reports having NOT received the Covid vaccine. - Infectious Disease History:: Denies. - Social history:: Smoking status: Patient denies any tobacco usage or history of. Screenin:40 [facility] ED Fall Risk Assessment (Adult) History of falling in the last 3 months, dd2 including since admission No falls in past 3 months (0 pts) Confusion or Disorientation No (0 pts) Intoxicated or Sedated No (0 pts) Impaired Gait No (0 pts) Mobility Assist Device Used No (0 pt) Altered Elimination Score/Fall Risk Level 0 - 2 = Low Risk Oriented to surroundings, Maintained a safe environment, Hourly rounding (assess needs \T\ fall precautionary measures) done. Abuse screen: Denies threats or abuse. Nutritional screening: No deficits noted. Tuberculosis screening: No symptoms or risk factors identified. Assessment: 07:40 General: Appears uncomfortable, ill, Behavior is anxious. Pain: Denies pain. Neuro: No dd2 deficits noted. Cardiovascular: Reports shortness of breath, Patient's skin is warm and dry. Pulses are all present. Rhythm is regular. Respiratory: Reports shortness of breath cough that is non-productive, Respiratory effort is with retractions, Breath sounds with rhonchi bilaterally. Breath sounds with wheezes bilaterally. GI: No deficits noted. : No deficits noted. EENT: No deficits noted. Derm: No deficits noted. Musculoskeletal: No deficits noted. 08:20 Reassessment: Patient appears in no apparent distress at this time. Patient and/or iw family updated on plan of care and expected duration. Pain level reassessed. Patient is alert, oriented x 3, equal unlabored respirations, skin warm/dry/pink. 11:44 Reassessment: Pt refusing BIPAP at this time. PRESETTER OPERATOR at bedside. dd2 Vital Signs: 07:00 BP 130 / 96; Pulse 104; Resp 28; Pulse Ox 94% on R/A; Weight 79.38 kg; Height 5 ft. 9 vc1 in. ; 07:45 BP 133 / 88; Pulse 107; Resp 24; Pulse Ox 97% ; dd2 08:28 BP 129 / 76; Pulse 89; Resp 18; Pulse Ox 99% on 2 lpm NC; iw 10:42 BP 139 / 95; Pulse 87; Resp 16; Pulse Ox 100% ; dd2 11:47 BP 146 / 86; Pulse 96; Resp 19; Pulse Ox 95% ; dd2 07:00 Body Mass Index 25.84 (79.38 kg, 175.26 cm) vc1 ED Course: 06:51 Patient arrived in ED. vc1 07:01 Triage completed. vc1 07:01 Initial lab(s) drawn, by me, sent to lab. Inserted saline lock: 20 gauge in right ty antecubital area, using aseptic technique. Blood collected. Flushed with 10 mL NS. 07:02 Arm band placed on left wrist. vc1 07:04 Basic Metabolic Panel Sent. ty 07:04 CBC with Diff Sent. ty 07:04 LFT's Sent. ty 07:04 Magnesium Sent. ty 07:04 NT PRO-BNP Sent. ty 07:04 Troponin HS Sent. ty 07:05 Radames Angeles MD is Attending Physician. ec2 07:10 XRAY Chest (1 view) In Process Unspecified. EDMS 07:40 Patient has correct armband on for positive identification. Bed in low position. Call dd2 light in reach. Side rails up X 1. Provided Education on: Call light, procedures, medications. Client placed on continuous cardiac and pulse oximetry monitoring. NIBP monitoring applied. quality assurance monitor on. Door closed. Warm blanket given. 07:50 Blood Culture Adult (2) Sent. ko1 07:50 Lactate w/ 2H reflex if indic. Sent. ko1 07:57 First set of blood cultures drawn by me, Second set of blood cultures drawn by me, EKG dd2 done, by ED staff, reviewed by Radames Angeles MD. 08:04 NEGRA SOUZA, RN is Primary Nurse. dd2 08:04 No provider procedures requiring assistance completed. Inserted saline lock: 20 gauge dd2 in left antecubital area, using aseptic technique. Oxygen administration via nasal cannula \T\ 2L/min. 08:20 COVID swab sent to lab. Flu and/or RSV swab sent to lab. iw 09:24 Mirlande Martin MD is Hospitalizing Provider. ec2 13:09 1309 CM met with patient at bedside in the ED exam room. Demographic sheet confirmed ane and change sent to appropriate personnel. Mr. Templeton states he lives with his on a 2nd floor apartment. Patient reports prior to admission, he performs ADLs independently. Patient reports he has an MPOA in place. DME in the home includes a CPAP. No HH, no home oxygen other medical services at this time. ' preferred plan is to return home upon discharge. Patient reports he can transport himself home. CM team will continue to follow and coordinate care. 16:17 Patient admitted, IV remains in place. ko1 Administered Medications: 07:04 Drug: DuoNeb Nebulize (3:1) (2.5 mg - 0.5 mg) 3 ml Nebulizer once Route: Nebulizer; vc1 07:34 Follow up: Response: No adverse reaction dd2 07:06 Drug: MethylPrednisoLONE IVP 125 mg IVP once Route: IVP; Site: right antecubital; ko1 07:21 Follow up: Response: No adverse reaction dd2 07:54 Drug: Magnesium Sulfate IVPB 2 grams IVPB once over 30 mins Route: IVPB; Infused Over: ko1 30 mins; Site: right antecubital; 08:09 Follow up: Response: No adverse reaction dd2 08:24 Follow up: Response: No adverse reaction; IV Status: Completed infusion; IV Intake: dd2 100ml 07:55 Drug: Rocephin IV 1 grams IV at calculated rate once; Given slow IV push per pharmacy ko1 instructions Route: IV; Rate: calculated rate; Site: right antecubital; 08:05 Follow up: Response: No adverse reaction; IV Status: Completed infusion dd2 08:10 Follow up: Response: No adverse reaction dd2 07:55 Drug: AZITHromycin IVPB 500 mg IVPB once over 1 hrs; (mix in 250 mL NS) Route: IVPB; ko1 Infused Over: 1 hrs; Site: right antecubital; 08:10 Follow up: Response: No adverse reaction dd2 08:58 Follow up: Response: No adverse reaction; IV Status: Completed infusion; IV Intake: dd2 250ml 08:36 Drug: NS 0.9% IV 1000 ml IV at 1 bolus Per protocol; 1000 mL bolus Route: IV; Rate: 1 dd2 bolus; Site: left antecubital; 09:42 Follow up: Response: No adverse reaction; IV Status: Completed infusion; IV Intake: dd2 1000ml 08:37 Drug: Albuterol Inhalation 2.5 mg Inhalation every 20 minutes x3 Route: Inhalation; dd2 10:01 Drug: Albuterol Inhalation 2.5 mg Inhalation every 20 minutes x3 Route: Inhalation; dd2 10:31 Follow up: Response: No adverse reaction dd2 10:01 Drug: Albuterol Inhalation 2.5 mg Inhalation every 20 minutes x3 Route: Inhalation; dd2 Medication: 07:40 VIS not applicable for this client. dd2 Intake: 08:24 IV: 100ml; Total: 100ml. dd2 08:58 IV: 250ml; Total: 350ml. dd2 09:42 IV: 1000ml; Total: 1350ml. dd2 Outcome: 09:24 Decision to Hospitalize by Provider. ec2 16:17 Admitted to ER Hold. Please see [facility] for further documentation. ko1 16:17 Condition: stable 16:17 Instructed on the need for admit, 17:07 Patient left the ED. dd2 Signatures: Dispatcher [employer] Mirlande Pineda RN RN iw Calcote, Vanessa, RN RN vc1 Annette Guerrero RN RN ko1 Radames Angeles MD MD ec2 Taran Gonzalez Andie, RN RN ane DAVIS, DIANA, RN RN dd2
--- NOTE | 2023-11-13 09:25 | EDPHYS ---
Physician Documentation [facility] Name: Gerry Templeton Age: 52 yrs Sex: Male : 1970 Arrival Date: 11/13/2023 Time: 06:48 Bed 4 Private MD: ED Physician Radames Angeles HPI: 11/12 07:10 This 52 yrs old Male presents to ER via Ambulatory with complaints of Breathing ec2 Difficulty. 07:10 Patient arrives today for evaluation of URI signs and symptoms. Patient reports ec2 symptoms ongoing for 2 days, reports shortness of breath, cough, no fevers or chills, no nausea or vomiting. Has been using inhalers at home with minimal improvement in symptoms.. Historical: - Allergies: 07:01 No Known Allergies; vc1 - Home Meds: 07:01 Albuterol Inhl [Active]; vc1 - PMHx: 07:01 Asthma; vc1 - PSHx: 07:01 None; vc1 - Immunization history:: Client reports having NOT received the Covid vaccine. - Infectious Disease History:: Denies. - Social history:: Smoking status: Patient denies any tobacco usage or history of. ROS: 07:11 Constitutional: as per hpi ec2 Exam: 07:11 Constitutional: GEN: NAD Head: atraumatic Eyes: EOMI Ears: External ears are ec2 normal. CV: Tachycardia LUNGS: Tachypnea, scattered wheezes throughout all lung leon ABD: non-distended SKIN: no evidence of rashes MSK: no evidence of trauma Vital Signs: 07:00 BP 130 / 96; Pulse 104; Resp 28; Pulse Ox 94% on R/A; Weight 79.38 kg; Height 5 ft. 9 vc1 in. ; 07:45 BP 133 / 88; Pulse 107; Resp 24; Pulse Ox 97% ; dd2 08:28 BP 129 / 76; Pulse 89; Resp 18; Pulse Ox 99% on 2 lpm NC; iw 10:42 BP 139 / 95; Pulse 87; Resp 16; Pulse Ox 100% ; dd2 11:47 BP 146 / 86; Pulse 96; Resp 19; Pulse Ox 95% ; dd2 07:00 Body Mass Index 25.84 (79.38 kg, 175.26 cm) vc1 MDM: 07:07 Patient medically screened. ec2 07:11 Data reviewed: vital signs. ED course: Patient arrives today for shortness of breath ec2 and cough and cold symptoms. Examination remarkable for tachypneic and tachycardic individual. Will obtain a septic workup, will empirically treat for pulmonary coverage. Differential includes asthma exacerbation, viral infection, pneumonia.. 08:04 ED course: EKG read by me, shows normal sinus rhythm, rate 93, no acute ST segment ec2 elevations, normal nonconcerning. . 08:10 ED course: CBC and metabolic profile are reassuring, LFTs nonactionable, troponin and ec2 BNP within normal ranges, lactate within normal ranges. . 08:12 ED course: On reassessment patient with marked improvement in his respiratory status ec2 however still remains tachypneic, will give the patient continuous albuterol as well.. 09:23 ED course: After continuous albuterol, patient still remains short of breath, will ec2 place patient on BiPAP and admit. Discussed case with hospitalist, pending admission. . 09:33 ED course: Venous blood gas shows pH of 7.31 and pCO2 retention of 49, this is prior to ec2 bipap. 11/12 06:52 Order name: Basic Metabolic Panel; Complete Time: 07:55 rt 11/12 06:52 Order name: CBC with Diff rt 11/12 06:52 Order name: LFT's; Complete Time: 07:55 rt 11/12 06:52 Order name: Magnesium; Complete Time: 07:55 rt 11/12 06:52 Order name: NT PRO-BNP; Complete Time: 07:55 rt 11/12 06:52 Order name: Troponin HS; Complete Time: 07:55 rt 11/12 07:07 Order name: Lactate w/ 2H reflex if indic.; Complete Time: 07:55 ec2 11/12 07:07 Order name: Blood Culture Adult (2) ec2 11/12 07:16 Order name: CBC Smear Scan EDMS 11/12 08:13 Order name: Influenza Screen (a \T\ B); Complete Time: 09:13 ec2 11/12 08:13 Order name: SARS RAPID; Complete Time: 09:13 ec2 11/12 09:18 Order name: ABG: VBG; Complete Time: 09:54 ec2 11/12 11:05 Order name: Basic Metabolic Panel EDMS 11/12 11:05 Order name: Basic Metabolic Panel EDCO 11/12 11:05 Order name: CBC with Automated Diff EDMS 11/12 11:05 Order name: CBC with Automated Diff EDMS 11/12 11:05 Order name: Lipid Profile EDMS 11/12 11:05 Order name: Lipid Profile EDCO 11/12 11:05 Order name: Troponin High Sensitivity EDMS 11/12 06:52 Order name: XRAY Chest (1 view); Complete Time: 08:27 rt 11/12 06:52 Order name: EKG; Complete Time: 06:53 rt 11/12 11:05 Order name: CONS Physician Consult EDMS 11/12 11:05 Order name: Respiratory Therapy Consult EDMS 11/12 06:52 Order name: Cardiac monitoring; Complete Time: 07:05 rt 11/12 06:52 Order name: EKG - Nurse/Tech; Complete Time: 07:50 rt 11/12 06:52 Order name: IV Saline Lock; Complete Time: 07:04 rt 11/12 06:52 Order name: Labs collected and sent; Complete Time: 07:04 rt 11/12 06:52 Order name: O2 Per Protocol; Complete Time: 07:04 rt 11/12 06:52 Order name: O2 Sat Monitoring; Complete Time: 07:04 rt 11/12 09:17 Order name: Misc. Order: VBG; Complete Time: 09:57 ec2 Administered Medications: 07:04 Drug: DuoNeb Nebulize (3:1) (2.5 mg - 0.5 mg) 3 ml Nebulizer once Route: Nebulizer; vc1 07:34 Follow up: Response: No adverse reaction dd2 07:06 Drug: MethylPrednisoLONE IVP 125 mg IVP once Route: IVP; Site: right antecubital; ko1 07:21 Follow up: Response: No adverse reaction dd2 07:54 Drug: Magnesium Sulfate IVPB 2 grams IVPB once over 30 mins Route: IVPB; Infused Over: ko1 30 mins; Site: right antecubital; 08:09 Follow up: Response: No adverse reaction dd2 08:24 Follow up: Response: No adverse reaction; IV Status: Completed infusion; IV Intake: dd2 100ml 07:55 Drug: Rocephin IV 1 grams IV at calculated rate once; Given slow IV push per pharmacy ko1 instructions Route: IV; Rate: calculated rate; Site: right antecubital; 08:05 Follow up: Response: No adverse reaction; IV Status: Completed infusion dd2 08:10 Follow up: Response: No adverse reaction dd2 07:55 Drug: AZITHromycin IVPB 500 mg IVPB once over 1 hrs; (mix in 250 mL NS) Route: IVPB; ko1 Infused Over: 1 hrs; Site: right antecubital; 08:10 Follow up: Response: No adverse reaction dd2 08:58 Follow up: Response: No adverse reaction; IV Status: Completed infusion; IV Intake: dd2 250ml 08:36 Drug: NS 0.9% IV 1000 ml IV at 1 bolus Per protocol; 1000 mL bolus Route: IV; Rate: 1 dd2 bolus; Site: left antecubital; 09:42 Follow up: Response: No adverse reaction; IV Status: Completed infusion; IV Intake: dd2 1000ml 08:37 Drug: Albuterol Inhalation 2.5 mg Inhalation every 20 minutes x3 Route: Inhalation; dd2 10:01 Drug: Albuterol Inhalation 2.5 mg Inhalation every 20 minutes x3 Route: Inhalation; dd2 10:31 Follow up: Response: No adverse reaction dd2 10:01 Drug: Albuterol Inhalation 2.5 mg Inhalation every 20 minutes x3 Route: Inhalation; dd2 Disposition: 09:23 Critical Care:. ec2 Disposition Summary: 11/13/23 09:24 Hospitalization Ordered Notes: Hospitalization Status: Inpatient Admission ec2 Provider: Mirlande Martin ec2 Condition: Stable ec2 Problem: new ec2 Symptoms: have improved ec2 Bed/Room Type: Standard ec2 Location: Telemetry/MedSurg (Inpatient)(11/13/23 15:40) bd Room Assignment: 413(11/13/23 15:40) bd Diagnosis - Moderate persistent asthma with (acute) exacerbation ec2 Forms: - Medication Reconciliation Form ec2 - SBAR form ec2 - Leadership Thank You Letter ec2 Critical care time excluding procedures: 09:23 Critical care time: Bedside Care: 30 minutes, Consultation: 5 minutes. Total time: 35 ec2 minutes Signatures: Dispatcher [employer] EDMS Lina Copeland Corey, PA PA cp Leal, Jahala, RN RN jl7 Keerthi Peng RN RN vc1 Annette Guerrero, RN RN ko1 Mike Caballero MD MD rt Radames Angeles MD MD ec2 NEGRA SOUZA RN RN dd2 Corrections: (The following items were deleted from the chart) 08: 08:13 Influenza Screen (A \T\ B)+BA.LAB.BRZ ordered. EDMS EDMS 08: 08:13 SARS-COV-2 Antigen Rapid+I.LAB.BRZ ordered. EDMS EDMS 12: 09:24 Telemetry/MedSurg (Inpatient) ec2 jl7 12: 09:24 ec2 jl7 15:40 12:06 [facility] ER HOLD jl7 bd 15:40 12:06 ERHOLD- jl7 bd
[2023-11-13 09:32] LABS: Arterial Blood Carboxyhemoglob 0.3 % (0-1.5); Blood Gas Oxyhemoglobin 45.2 % (94-97); Blood Gas THB 15.4 g/dl (12-18); Blood O2 Saturation 46.3 % (92-98.5)
--- NOTE | 2023-11-13 09:46 | P.HP ---
Certification for Inpatient Patient admitted to: Inpatient With expected LOS: >2 Midnights Patient will require the following post-hospital care: None Practitioner: I am a practitioner with admitting privileges, knowledge of patient current condition, hospital course, and medical plan of care. Services: Services provided to patient in accordance with Admission requirements found in Title 42 Section 412.3 of the Code of Federal Regulations <Nanette Martinez - Last Filed: 11/13/23 16:24> Patient History Date of Service: 11/13/23 Reason for admission: asthma exacerbation History of Present Illness: Mr. Templeton is a 52-year-old male patient with a past medical history of asthma. He states he has no allergies, trigger possibly this time of year (summer). He states yesterday he began having a bit of difficulty breathing, increased wheezing, and was using his albuterol inhaler without much improvement. He worked overnight and presented to the emergency department straight from his shift secondary to dyspnea. On arrival he had increased work of breathing, inspiratory and expiratory wheezes with tachypnea and tachycardia. He received bronchodilators, magnesium sulfate, steroids, antibiotics, and IVF in the emergency department. He will be admitted for further evaluation and treatment second to continued tachycardia and need for BiPAP secondary to increased work of breathing with consultation to Dr. Albert. Of note, eosinophils 19.7% Home medications list reviewed: Yes - Past Medical/Surgical History Has patient received pneumonia vaccine in the past: No Diabetic: No -: asthma Past Surgical History: Patient denies surgical history Psychosocial/ Personal History: Patient works nights. - Family History Family History: Reviewed- Non-Contributory (Adopted) - Social History Smoking Status: Former smoker Alcohol use: No CD- Drugs: No Caffeine use: Yes Place of Residence: Home <Nanette Martinezlen - Last Filed: 11/13/23 16:24> Date of Service: 11/13/23 <Mirlande Martin - Last Filed: 11/13/23 18:13> Allergies No Known Allergies Allergy (Unverified 11/13/23 10:40) Home Medications: Albuterol Inhaler [Ventolin Inhaler*] 2 puff IH Q4H PRN 11/13/23 Theophylline Anhydrous [Jonathan-24] 1 tab PO DAILY 11/13/23 Review of Systems 10-point ROS is otherwise unremarkable Respiratory: Cough, Shortness of Breath, SOB with Excertion, As per HPI <Nanette Martinez Joel - Last Filed: 11/13/23 16:24> Physical Examination - Physical Exam General: Alert, Oriented x3, Mild distress HEENT: Atraumatic, Normocephalic Neck: Supple Respiratory: Expiratory wheezes, Inspiratory wheezes, Other (On BiPAP) Cardiovascular: No edema, Regular rate/rhythm Capillary refill: <2 Seconds Gastrointestinal: Normal bowel sounds, Soft and benign Musculoskeletal: No clubbing Integumentary: No rashes Neurological: Normal speech, Normal tone, Normal affect Lymphatics: No axilla or inguinal lymphadenopathy External genitalia: Deferred Rectal: Deferred - Studies Laboratory Data (last 24 hrs) 11/13/23 11/13/23 07:01 07:01 WBC 7.40 Hgb 15.9 Hct 47.1 Plt Count 234 Sodium 140 Potassium 4.0 BUN 10 Creatinine 1.28 Glucose 111 H Magnesium 2.2 Total Bilirubin 1.0 AST 16 ALT 23 Alkaline Phosphatase 117 Microbiology Data (last 24 hrs): 11/13/23 08:20 Nasopharnyx Influenza Type A Antigen Screen - Final 11/13/23 08:20 Nasopharnyx Influenza Type B Antigen Screen - Final <Nanette Mratinez - Last Filed: 11/13/23 16:24> - Studies Laboratory Data (last 24 hrs) 11/13/23 11/13/23 07:01 07:01 WBC 7.40 Hgb 15.9 Hct 47.1 Plt Count 234 Sodium 140 Potassium 4.0 BUN 10 Creatinine 1.28 Glucose 111 H Magnesium 2.2 Total Bilirubin 1.0 AST 16 ALT 23 Alkaline Phosphatase 117 Microbiology Data (last 24 hrs): 11/13/23 08:20 Nasopharnyx Influenza Type A Antigen Screen - Final 11/13/23 08:20 Nasopharnyx Influenza Type B Antigen Screen - Final <Mirlande Martin - Last Filed: 11/13/23 18:13> Assessment and Plan - Plan Asthma: Plan: Pulmonary function test/Peak flow measurement Current therapy - Theophylline ER 300mg po daily and albuterol Triggers -summertime Nebs, steroids, and antibiotics O2 per protocol Outpatient spirometry or PFT Repeat chest x-ray Pulmonary consultation appreciated - Advance Directives Does patient have a Living Will: No Does patient have a Durable POA for Healthcare: No Critical Care: No Time Spent Managing Pts Care (In Minutes): 55 <Nanette Martinez - Last Filed: 11/13/23 16:24> - Plan Pt seen and examined. I agree with the note by the SURGERY SCHEDULER. Pt is a 52yo male with past medical history of asthma who presents with SOB and wheezing despite using his albuterol. On arrival, pt had increased work of breathing , tachypnea and tachycardia. Lab studies show wbc 7.4, Hgb 15.7, K 4, Cr 1.28. ER physician gave breathing treatment, Mag sulfate, steroid and abx. At bedside, pt is in NAD. A/P: Asthma exacerbation: Will continue duoneb, oxygen steroid and abx. Consulted Pulm. <Mirlande Martin - Last Filed: 11/13/23 18:13>
[2023-11-13 10:06] LABS: Blood Morphology Comment NOT SEEN (NOT SEEN); Platelet Estimate ADEQ; White Blood Cell Scan OK (OK)
[2023-11-13] MEDS ORDERED: ALBUTEROL 2.5 MG/3 ML NEB SOL NEB PRN (10:56)
[2023-11-13] MEDS ORDERED: ACETAMINOPHEN 500 MG TAB PO PRN (10:56)
[2023-11-13] MEDS ORDERED: HYDROCODONE/CHLORPHEN 5 ML/OSYR PO PRN (10:56)
[2023-11-13] MEDS: IPRATROPIUM BROM 0.5MG/2.5ML NEB SCH (11:00)
[2023-11-13] MEDS: NA CHLORIDE 0.9% 1,000 ML IV SCH (11:00)
[2023-11-13] MEDS: METHYLPREDNISOLONE 125 MG INJ IV SCH (12:00)
[2023-11-13 13:53] VITALS: BMI 25.8
[2023-11-13] MEDS ORDERED: PNEUMOCOCCAL VACCINE 0.5 ML IMVAC ONE (16:00)
[2023-11-13] MEDS: ARFORMOTEROL TARTRATE 15 MCG/2 ML VIAL.NEB NEB SCH (20:47)
[2023-11-13] MEDS: CEFTRIAXONE 1,000 MG in NA CHLORIDE 0.9% 50 ML IVPB SCH (21:12)
[2023-11-13] MEDS: FAMOTIDINE 20 MG/2 ML VIAL IV SCH (21:12)
[2023-11-14 02:31] VITALS: O2SAT 94
[2023-11-14] MEDS: ALBUTEROL 2.5 MG/3 ML NEB SOL NEB PRN (03:20)
[2023-11-14 07:03] LABS: Absolute Lymphocytes (CBC) 0.3 K/uL (0.7-4.9); Absolute Monocytes 0.2 K/uL (0.1-1.3); Absolute Neutrophil 10.9 K/uL (1.8-8.0); Basophils % 0.1 % (0-1.3); Hematocrit 39.8 % (39.6-49.0); Hemoglobin 13.4 g/dL (13.6-17.9); Lymphocytes % 2.6 % (15.3-44.8); MCH 28.1 pg (27.0-35.0); MCHC 33.8 g/dL (32.0-36.0); MCV 83.4 fL (80-100); MPV 9.4 fL (7.6-11.3); Monocytes % 1.5 % (3.3-12.3); Neutrophils % 95.8 % (41.7-73.7); Platelets 194 thou/uL (152-406); RBC Red Blood Cell Count 4.77 M/uL (4.33-5.43); Red Cell Distribution Width 14.3 % (12.1-15.2)
[2023-11-14 07:36] LABS: Anion Gap 9.3 mEq/L (5.0-15.0); BUN Blood Urea Nitrogen 13 mg/dL (7-18); Bicarbonate 22 mEq/L (21-32); Glomerular Filtration Rate 89 ml/min (=/>90); Glucose Level 138 mg/dL (74-106); HDL Cholesterol 54 mg/dL (40-60); Potassium 4.3 mEq/L (3.5-5.1); Sodium Level 140 mEq/L (136-145)
[2023-11-14 07:41] LABS: LDL Cholesterol, Calculated 68 mg/dL (<130); LDL Cholesterol,Calc NonReport 68
[2023-11-14] MEDS: ENOXAPARIN 40 MG/0.4 ML SQ SCH (09:40)
[2023-11-14] MEDS: ASPIRIN EC 81 MG TAB PO SCH (09:40)
[2023-11-14] MEDS: AZITHROMYCIN IV 500 MG in NA CHLORIDE 0.9% 250 ML IVPB SCH (09:49)
--- NOTE | 2023-11-14 11:53 | P.CNS ---
Date of Consult: 11/14/23 Chief Complaint: asthma exacerbation History of Present Illness: Patient is 52 years of age with a history of poorly controlled asthma only takes theophylline and a bronchodilator apparently was diagnosed in [place] he tried inhalers a while ago did not help came into the emergency room worsening dyspnea and respiratory distress hypoxemia and was admitted admitted short of breath use any steroid inhaler attack came on rather suddenly Allergies No Known Allergies Allergy (Unverified 11/13/23 10:40) Home Medications: Albuterol Inhaler [Ventolin Inhaler*] 2 puff IH Q4H PRN 11/13/23 Theophylline Anhydrous [Jonathan-24] 1 tab PO DAILY 11/13/23 Budesonide/Glycopyr/Formoterol [Breztri Aerosphere Inhaler] 10.7 gm IH BID 30 Days #1 aero 11/14/23 - Past Medical/Surgical History Diabetic: No -: asthma Psychosocial/ Personal History: Patient works nights. - Social History Alcohol use: No CD- Drugs: No Caffeine use: Yes Place of Residence: Home Review of Systems 10-point ROS is otherwise unremarkable Respiratory: Cough, Shortness of Breath Physical Examination Temp Pulse Resp BP Pulse Ox 97.4 F 93 H 16 106/63 94 11/14/23 08:00 11/14/23 08:00 11/14/23 08:00 11/14/23 08:00 11/14/23 08:00 General: Alert, Oriented x3, Mild distress Respiratory: Expiratory wheezes Cardiovascular: No edema, Regular rate/rhythm, Normal S1 S2 Gastrointestinal: Normal bowel sounds, Soft and benign, Non-distended Musculoskeletal: No clubbing, No swelling - Problems (1) Asthma exacerbation Current Visit: Yes Status: Acute Plan: Patient is 52 years of age with a history of poorly controlled asthma uses only theophylline and Ventolin with an exacerbation x-ray shows hyperinflation will need steroids changed to p.o. prednisone DC IV fluids changed over to p.o. Zithromax for anti-inflammatory purposes labs chest x-rays all reviewed discharge tomorrow on prednisone 20 mg twice a day for a week given him a sample of Breztri and also fax a prescription over to his pharmacy to follow-up with me in 2 weeks and Romycin at discharge Qualifiers: Asthma severity: severe
[2023-11-14] MEDS: BUDESONIDE 0.5 MG/2 ML NEB NEB SCH (12:00)
[2023-11-14 12:14] VITALS: BP 128/75; TEMP 97.3
--- NOTE | 2023-11-14 12:17 | P.DS ---
Admission Date: 11/13/23 Discharge Date: 11/14/23 Disposition: ROUTINE DISCHARGE Discharge Condition: GOOD Reason for Admission: asthma exacerbation Brief History of Present Illness: Mr. Templeton is a 52-year-old male patient with a past medical history of asthma. He states he has no allergies, trigger possibly this time of year (summer). He states yesterday he began having a bit of difficulty breathing, increased wheezing, and was using his albuterol inhaler without much improvement. He worked overnight and presented to the emergency department straight from his shift secondary to dyspnea. On arrival he had increased work of breathing, inspiratory and expiratory wheezes with tachypnea and tachycardia. He received bronchodilators, magnesium sulfate, steroids, antibiotics, and IVF in the emergency department. He will be admitted for further evaluation and treatment second to continued tachycardia and need for BiPAP secondary to increased work of breathing with consultation to Dr. Albert. Of note, eosinophils 19.7% Hospital Course: Pt is a 52yo male with past medical history of asthma who presented with SOB and expiratory wheezing despite using his albuterol. On arrival, pt had increased work of breathing, tachypnea and tachycardia. Lab studies showed wbc 7.4, Hgb 15.7, K 4, Cr 1.28. ER physician gave breathing treatment, Mag sulfate, steroid and abx. We admitted pt for acute asthma exacerbation and continued abx, steroid, oxygen ( 2l BNC) and duoneb. by the next day pt was oxygenating well on room air. Pulonology evaluated pt and cleared him for discharge. Pt was advised to follow up with Pulm in clinic and continue prednisone 20mg po BID, azithromycin and Breztri. Pt was in NAD prior to discharge. Vital Signs/Physical Exam: Temp Pulse Resp BP Pulse Ox 97.3 F 113 H 16 128/75 95 11/14/23 12:00 11/14/23 12:00 11/14/23 12:00 11/14/23 12:00 11/14/23 12:00 Laboratory Data at Discharge: WBC 11.40 thou/uL (4.3-10.9) H 11/14/23 06:03 Hgb 13.4 g/dL (13.6-17.9) L D 11/14/23 06:03 Hct 39.8 % (39.6-49.0) 11/14/23 06:03 Plt Count 194 thou/uL (152-406) 11/14/23 06:03 Sodium 140 mEq/L (136-145) 11/14/23 06:03 Potassium 4.3 mEq/L (3.5-5.1) 11/14/23 06:03 BUN 13 mg/dL (7-18) 11/14/23 06:03 Creatinine 1.00 mg/dL (0.70-1.30) 11/14/23 06:03 Glucose 138 mg/dL (74-106) H 11/14/23 06:03 Magnesium 2.2 mg/dL (1.6-2.4) 11/13/23 07:01 Total Bilirubin 1.0 mg/dL (0.2-1.0) 11/13/23 07:01 AST 16 U/L (15-37) 11/13/23 07:01 ALT 23 U/L (16-61) 11/13/23 07:01 Alkaline Phosphatase 117 U/L (45-117) 11/13/23 07:01 Triglycerides < 30 mg/dL (<150) 11/14/23 06:03 Cholesterol 128 mg/dL (<200) 11/14/23 06:03 HDL Cholesterol 54 mg/dL (40-60) 11/14/23 06:03 Cholesterol/HDL Ratio 2.37 11/14/23 06:03 Home Medications: Albuterol Inhaler [Ventolin Inhaler*] 2 puff IH Q4H PRN 11/13/23 Theophylline Anhydrous [Jonathan-24] 1 tab PO DAILY 11/13/23 Azithromycin Tab [Zithromax*] 500 mg PO DAILY 5 Days #5 tab 11/14/23 Budesonide/Glycopyr/Formoterol [Breztri Aerosphere Inhaler] 10.7 gm IH BID 30 Days #1 aero 11/14/23 predniSONE [Deltasone] 20 mg PO BID 7 Days #14 tab 11/14/23 New Medications: Budesonide/Glycopyr/Formoterol [Breztri Aerosphere Inhaler] 10.7 gm IH BID 30 Days #1 aero predniSONE [Deltasone] 20 mg PO BID 7 Days #14 tab Azithromycin Tab [Zithromax*] 500 mg PO DAILY 5 Days #5 tab Physician Discharge Instructions: Continue ad sheila activity as tolerated. Take prednisone 20mg po BID and azithromycin as prescribed. Follow up with Dr. Albert in clinic within 1 - 2 weeks. Diet: Regular Activity: Ad sheila Followup: NONE,NONE [Primary Care Provider] -
--- NOTE | 2023-11-14 12:43 | EKG ---
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
[2023-11-14] MEDS ORDERED: predniSONE 20 MG TAB PO SCH (21:00)
[2023-11-15] MEDS ORDERED: AZITHROMYCIN 250 MG TAB PO SCH (09:00)
== END 2023-11-14 15:30 | disposition home or self-care (01) | DRG 203 ==
LOC: ER 06:48 → ERHOLD 10:56 → 4TH 15:51
PROVIDERS: ADMIT Hospitalist; ATTEND Hospitalist
PROC: 5A09457 Assistance with Respiratory Ventilation, 24-96 Consecutive Hours, Continuous Positive Airway Pressure (ICD-10-PCS; principal; 2023-11-13)
DX: J45.51 Severe persistent asthma with (acute) exacerbation (principal); Z11.52 Encounter for screening for COVID-19; Z79.52 Long term (current) use of systemic steroids; Z28.310 Unvaccinated for COVID-19; Z79.899 Other long term (current) drug therapy; Z87.891 Personal history of nicotine dependence
CPT/HCPCS: 36415; 71045; 80048; 80061; 80076; 82805; 83605; 83735; 83880; 84484; 85025; 87040; 87804; 87811; 93005; 94010; 94640; 94660; 94760; 96361; 96365; 96375; 99285; J0696; J1650; J2919; J3475; J7030; J7050; J7605; J7613; J7644